=== PATIENT | male | born 2000 | race Caucasian/White ===

== ENCOUNTER 2024-07-25 14:47 | Emergency (ER) | payer BC, SELFPAY ==
[2024-07-25 14:52] VITALS: BP 145/81
--- NOTE | 2024-07-25 15:03 | EDRN ---
Pt is speaking w/ google assist but not making any sense to google [employer]. Getting response of 'Can't help you with that.' Pt asking google assist to turn off lights and equipment and connect w/ vital signs machine. Pt given spec cup and wipes as
well as instructions on mid stream clean catch urine spec. pt went to [facility] and returned w/ cup w/ wipe in it. Christine KEITA in room w/pt.
--- NOTE | 2024-07-25 15:22 | ED.GENMED ---
History of Present Illness
General
Chief Complaint: Psychiatric Problem
Source: patient and ambulance crew
Time Seen by Provider: 07/25/24 15:01
History of Present Illness
History of Present Illness:
24-year-old male with past medical history of ADHD and OCD presenting to the emergency department with EMS for evaluation of michelle and possible psychosis. Patient has been acting erratically per family, taking psychedelic mushrooms and stating that
he has been working to have AI assistance with his phone which can be used to control peoples thoughts. Patient difficult to get a history from as most of the conversation goes back to AI assistance and [employer]. Patient notes that he has been doing a
3 day water cleanse and has been using mushrooms for most of these days. Supposed to be on medications for ADHD but states he decided to not take these medications as Kevin Saenz was concerned these medications were contributing to the obesity
epidemic.
Past History
Past History
ED Past Medical History: Psychiatric
ED Past Surgical History: None
Social History
Tobacco: Smoker
Alcohol: Occasional
Drug: Marijuana and Other
Personal: Single
Living: with family
Review of Systems
Review of Systems
All Other Systems: ROS reviewed and negative except as documented in HPI and ROS
Phy Exam
Physical Exam
Physical Exam:
GENERAL: Alert , in no apparent distress
EYE: conjunctiva clear
Head: Normocephalic atraumatic
NECK: Supple,
ENT: mmm.
LUNGS: no acute respiratory distress
NEUROLOGICAL: Alert and oriented
SKIN: Warm and dry, skin intact.
MUSCULOSKELETAL: well perfused.
PSYCH: Normal and appropriate interaction.
Scores
Heart Failure Risk
Heart Failure Risk Score: Not Applicable
Heart Score for Chest Pain Patients
STEMI patient?: Not applicable
Withdrawal Assessment of Alcohol
Withdrawal Assessment Completed?: Not applicable
Course
Orders/Labs/Results
Orders:
Orders
07/25/24 15:10
Crisis Consult Urgent
Reason for Consult: psychosis
07/25/24 15:12
1:1 Observation - Suicide/ Violent Behavior As Directed
07/25/24 15:54
Complete Blood Count/With Diff Urgent
Comprehensive Metabolic Panel Urgent
07/25/24 16:32
Urine Drug Abuse Screen Urgent
Date Specimen was Collected: 07/25/24
Time Specimen was Collected: 16:30
Abnormal Lab Results
07/25/24 07/25/24
15:54 16:32
Glucose 109 H mg/dl
(70-99)
Calcium 10.6 H mg/dl
(8.4-10.2)
Albumin 5.2 H g/dl
(3.5-5.0)
U Marijuana (THC) Screen Positive H
(Negative)
07/25/24 15:54
07/25/24 15:54
Vital Signs
Initial and Last Documented VS:
Initial Vital Signs
Temp Pulse Resp BP Pulse Ox
98.5 F 99 16 145/81 100
07/25/24 14:52 07/25/24 14:52 07/25/24 14:52 07/25/24 14:52 07/25/24 14:52
Last Documented Vital Signs
Temp Pulse Resp BP Pulse Ox
97.8 F 78 16 111/77 99
07/25/24 17:20 07/25/24 17:20 07/25/24 17:20 07/25/24 17:20 07/25/24 17:20
MDM/Problems Addressed
Differential Diagnosis Includes:
Psychosis, substance abuse side effects, no concern for current infectious cause for presentation
MDM/Problems Addressed:
24-year-old male presenting to the emergency department for evaluation of what appears to be an acute psychosis. Possibly drug-induced from his use of psychedelic mushrooms over the last few days. Patient consistently talking about AI causing
influence on his thoughts and controlling actions throughout the interaction. Denies SI/HI or hallucinations. No physical concerns. Will consult crisis. Anticipate need for telepsych or psychiatry input. Patient placed on 1:1 due to concern for
possibly leaving the ED.
Chronic conditions affecting care: Psychiatric illness
*Pulse Oximetry
Patient hypoxic: no
*Critical Care Note
Total Time (30-74mins, 75-104mins- exclusive of procedures): Not Applicable
Patient Management
Escalation/DeEscalation of care consider admission/obs:
Patient amenable to a 201 but mother did sign a backup 302. Crisis working on patient placement. Patient otherwise remains stable and in no acute distress.
ED Attending Note
-
Portions of this chart may have been created with voice recognition software.� Occasional wrong word or��sound alike� substitutions may have occurred due to the inherent limitations of voice recognition software.
Discharge Plan
Departure
Patient Disposition: Psych Facility
Date of Disposition: 07/25/24
Time of Disposition: 18:23
Patient with high blood pressure during this ER visit?: No
Discharge Problem:
Psychosis
Referrals:
NONE,* [Family Provider] -
Interventions
Interventions:
*Risk Screen - Suicide Last Done: 07/25/24 15:01
*General Assessment Last Done: 07/25/24 15:01
*Neglect/Abuse Screening Last Done: 07/25/24 15:01
ED- Fall Risk Assessment Last Done: 07/25/24 15:01
*ED COVID-19 Vaccine History Last Done: 07/25/24 15:01
ED-Psychological Assessment Last Done: 07/25/24 15:06
Discharge Date and Time
Print Language: ALBANIAN
--- NOTE | 2024-07-25 15:58 | EDRN ---
Crisis was in room interviewing pt. Pt was recording staff on phone per healthcare social worker. One to [facility] for possible flight risk on pt w/ [facility] at this time. Bloods drawn and sent to lab. Digital Media Sales Consultant in triage phoned and informed family member is able to
come back and visit w/ pt.
--- NOTE | 2024-07-25 16:01 | EDRN ---
Mother is in tears about her son, sister getting tomorrow she stated, states pt was to start a new job today but went to an old job site instead (where he had had a job 2 years ago). Pt has been taking all kinds of supplements, has recently
quit smoking, is vaping, and taking nicotene in some form as well as taking mushrooms. Mother is speaking to Christine KEITA at this time.
[2024-07-25 16:10] LABS: % Basophils 0.2 % (0-2); % Eosinophils 0.1 % (0-6); % Immature Granulocytes 0.2 % (0-0.5); % Lymphocytes 22.9 % (20.5-51.1); % Monocytes 5.2 % (1.7-9.3); % Neutrophils 71.4 % (42.2-75.2); Absolute Monocytes 0.5 10^3/uL (0.1-0.6); Absolute Neutrophils 6.3 10^3/uL (1.4-6.5); Hematocrit 43.3 % (39.0-52.0); Hemoglobin 15.7 g/dL (13.0-18.0); Mean Corp Hgb Conc. 36.3 g/dL (33.0-37.0); Mean Corpuscular Hgb 30.7 pg (27.0-31.0); Mean Corpuscular Volume 84.6 fL (80.0-94.0); Mean Platelet Volume 9.5 fL (7.4-10.4); Nucleated Red Blood Cells % 0 % (-); Platelet Count 204 10^3/uL (130-400); Red Blood Cell Count 5.12 10^6/uL (4.70-6.10); Red Cell Dist. Width 12.4 % (11.5-14.5); White Blood Cell Count 8.8 10^3/uL (4.8-10.8)
[2024-07-25 16:19] LABS: ALT (SGPT) 19 U/L (0-50); AST (SGOT) 21 U/L (17-59); Albumin 5.2 g/dl (3.5-5.0); Alkaline Phosphatase 65 U/L (38-126); Blood Urea Nitrogen 13 mg/dl (9-20); Calcium 10.6 mg/dl (8.4-10.2); Carbon Dioxide 22 mmol/L (22-30); Chloride 106 mmol/L (98-107); Glucose 109 mg/dl (70-99); Potassium 4.3 mmol/L (3.5-5.1); Sodium 142 mmol/L (135-145); Total Bilirubin 0.7 mg/dl (0.2-1.3); Total Protein 7.7 g/dl (6.3-8.2); eGFR > 60.00
[2024-07-25 16:24] VITALS: BP 138/64
[2024-07-25 17:14] VITALS: BMI 26.2
[2024-07-25 17:16] LABS: Amphetamines Negative (Negative); Barbiturates Negative (Negative); Benzodiazepines Negative (Negative); Buprenorphine Negative (Negative); Cocaine Negative (Negative); Marijuana Positive (Negative); Methadone Negative (Negative); Methamphetamines Negative (Negative); Opiates Negative (Negative); Phencyclidine Negative (Negative); Tricyclic Antidepressants Negative (Negative)
[2024-07-25 17:20] VITALS: BP 111/77
--- NOTE | 2024-07-25 17:50 | EDRN ---
Pt had been informed twice by Christine Hawkins PA had informed pt that he cannot record conversations while in the hospital or his phone would have to be confiscated. This RN brought pt a boxed lunch and cup of ice water and reinforced this message. Pt is
voluntary psychiatric inpt w/ a back up 302 that pt's mother placed on file.
--- NOTE | 2024-07-25 18:10 | EDRN ---
Pt ate 3/4's of his boxed lunch. Pt asked for his RN and then asked me at this time for his clothes. Pt has been in papers scrubs since 16:00. Pt was informed about our policy and that his clothes are outside of his room in a bag and he will get
them when he leaves.
[2024-07-25 19:00] VITALS: BP 131/86
--- NOTE | 2024-07-25 20:37 | EDRN ---
CW updated nursing: pt accepted at [facility]. CW to set up transport.
[2024-07-25 22:50] VITALS: BP 131/70
== END 2024-07-25 22:55 ==
LOC: EMR 14:47
PROVIDERS: Physician Assistant Medical; EMERGENCY PHYSICIAN Student in an Organized Health Care Education/Training Program
DX: F29 Unspecified psychosis not due to a substance or known physiological condition (principal); F42.9 Obsessive-compulsive disorder, unspecified; F90.9 Attention-deficit hyperactivity disorder, unspecified type; F17.200 Nicotine dependence, unspecified, uncomplicated
CPT/HCPCS: 99283; 80053; 80306; 85025